=== PATIENT | male | born 1990 | race Caucasian/White ===

== ENCOUNTER → 2016-12-18 | Day surgery (SDC) | payer OTHER ==
[~2016-12-18] VITALS: Ht 177.8 cm; Wt 83.8 kg
[~2016-12-18] MED LIST: THERA-VITE W/ B1 TAB PO; TYLENOL WITH C1 EACH PO; TYLENOL/COD#31 TAB PO
--- NOTE | ~2016-12-18 | OR ---
PATIENT'S NAME: KAREN CHENEY [facility] AGE: 26 Y [address] ROOM: [place] [id number] [place] [facility] [place]: 12/18/2016 OR/Procedure Report DISCHARGE DATE: FAMILY PHYSICIAN: Leslie Olivera PA-C ATTENDING PHYSICIAN: Elana Limon SURGEON: Elana Limon MD STAFF EDUCATOR: DATE OF PROCEDURE: 12/18/2016 PREOPERATIVE DIAGNOSIS: Left nephrolithiasis. POSTOPERATIVE DIAGNOSIS: Left nephrolithiasis. PROCEDURE PERFORMED: Left ESWL. ANESTHESIA: MAC. COMPLICATIONS: None. INDICATIONS FOR PROCEDURE: The patient is a 26-year-old male, with approximately a 7 mm to 8 mm left renal pelvic stone with intermittent pain. DETAILS OF PROCEDURE: After informed consent was obtained, the patient was taken to the Operating Room. A MAC anesthetic was applied. He was placed in a supine position on the lithotripsy table. His stone was targeted with fluoroscopy. He received shocks starting at 14 kilovolts and gradually increased to 24 kilovolts. He received a total of 2000 shocks with good fragmentation of the stone. POSTOPERATIVE CONDITION/DISPOSITION: The patient tolerated this procedure well, and was transferred to Recovery Room in good condition. MD FADI ROBB/modl /[id number] CC: Leslie Olivera PA-C d: 12/18/162002 t: 01/02/17 1157, OPERATIVE SUMMARY
[2016-12-18 13:46] LABS: BASOPHIL % 0.4 %; EOSINOPHIL # 0.1 K/uL (0.0-0.5); EOSINOPHIL % 0.6 %; HEMATOCRIT 43.1 % (37.0-53.0); HEMOGLOBIN 15.4 g/dL (12.0-17.0); IMMATURE GRANULOCYTE % 0.5 %; LYMPHOCYTE # 2.2 K/uL (0.8-4.0); LYMPHOCYTE % 26.5 %; MCH 32.1 pg (27.0-34.0); MCHC 35.7 gm/dL (32.0-36.5); MCV 89.8 fl (83.0-98.0); MONOCYTE # 0.7 K/uL (0.0-1.0); MPV 11.2 fl (9.4-12.4); NEUTROPHIL # (ANC) 5.3 K/uL (1.4-9.0); NRBC % 0 /100WBC (0-0.00); PLATELET COUNT 227 K/uL (150-450); RDW-CV 12.1 % (11.9-14.6); WBC 8.3 K/uL (4.0-11.0)
[2016-12-18 14:06] LABS: ALBUMIN 4.6 gm/dL (3.5-5.0); ALK PHOS 73 IU/L (33-138); ALT 63 IU/L (12-78); ANION GAP 9.8 (10.0-19.0); AST 29 IU/L (10-40); BLOOD UREA NITROGEN 12 mg/dL (6-24); CALCIUM 8.9 mg/dL (8.5-10.5); CHLORIDE 107 mMol/L (96-110); CO2 27 mMol/L (22-32); POTASSIUM 3.8 mMol/L (3.7-5.1); SODIUM 140 mMol/L (135-145); TOTAL BILIRUBIN 0.7 mg/dL (0.0-1.5); TOTAL PROTEIN 7.6 g/dL (6.0-8.4)
== END | disposition disaster alternative care site (69) ==
LOC: GPOC 12-14 14:00 → GSDC 13:01
PROVIDERS: Urology
PROC: 0TF4XZZ Fragmentation in Left Kidney Pelvis, External Approach (ICD-10-PCS; principal; 2016-12-18)
DX: N20.0 Calculus of kidney (principal); Z98.890 Other specified postprocedural states
CPT/HCPCS: J2001; J7030

== ENCOUNTER → 2017-01-07 | Outpatient (CLI) | payer OTHER | END | disposition disaster alternative care site (69) | LOC: GRAD 14:05 | DX: N20.0 Calculus of kidney (principal) ==